=== PATIENT | female | born 1955 | race Caucasian/White ===

== ENCOUNTER → 2016-06-13 | Outpatient (CLI) | payer BC ==
[~2016-06-13] MED LIST: HYDR-5688 PO; IBUP-1428 PO
[2016-06-13 16:50] LABS: URINE APPEARANCE CLEAR (CLEAR); URINE BILIRUBIN NEG (NEG); URINE COLOR YELLOW; URINE EPITHELIAL CELL AUTO 20-30 /lpf (0-5); URINE NITRITE NEG (NEG); URINE PH 6.5 (4.5-7.5); UROBILINOGEN NEG (NEG)
[2016-06-13 17:02] LABS: MANUAL MICROSCOPIC REQUIRED? NO; REVIEW REQ? NO
== END | disposition home or self-care (01) ==
LOC: C.LAB 15:49
PROVIDERS: ATTEND Obstetrics & Gynecology
DX: R82.90 Unspecified abnormal findings in urine (principal)

== ENCOUNTER → 2016-06-29 | Outpatient (CLI) | payer BC | END | disposition home or self-care (01) | LOC: C.LAB 10:15 | PROVIDERS: ATTEND Obstetrics & Gynecology | DX: R82.90 Unspecified abnormal findings in urine (principal) ==

== ENCOUNTER → 2016-08-13 | Outpatient (CLI) | payer BC | END | disposition home or self-care (01) | LOC: C.PAPS 15:59 | PROVIDERS: ATTEND Obstetrics & Gynecology | DX: Z01.419 Encounter for gynecological examination (general) (routine) without abnormal findings (principal); Z87.42 Personal history of other diseases of the female genital tract; Z78.0 Asymptomatic menopausal state ==

== ENCOUNTER → 2016-08-13 | Outpatient (CLI) | payer BC | END | disposition home or self-care (01) | LOC: C.LABSPEC 13:49 | PROVIDERS: ATTEND Obstetrics & Gynecology | DX: N76.0 Acute vaginitis (principal); R82.90 Unspecified abnormal findings in urine ==

== ENCOUNTER 2016-08-30 22:43 | Emergency (ER) | payer BC ==
[~2016-08-30] VITALS: Ht 170.2 cm; Wt 65.6 kg
[2016-08-30 22:46] VITALS: TEMP 36.7; Ht 170.2 cm; Wt 65.6 kg
--- NOTE | 2016-08-30 22:59 | EMERGENCY ROOM VISIT NOTE ---
History Report prepared by [place]ibraven: Zack Hester Under the Supervision of: Dr. Mert De La Cruz D.O. First contact with patient: 22:49 Chief Complaint: FALL Stated Complaint: FELL,NOSE SCRAPED,RT FOOT,LF HAND History of Present Illness The patient is a 61 year old female who presents to the Emergency Room with complaints of an acute fall that occurred just prior to arrival. The patient missed the last step as she was going down a set of stairs. She scraped her nose on the ground, which was bleeding externally. She denies any bleeding from the internal nose. She also has right foot and left hand pain. She did not lose consciousness. She denies chest pain, back pain, abdominal pain, or hip pain. The patient cannot recall when she had her last tetanus booster. 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 A total of ten systems were reviewed and were otherwise negative. Past Medical & Surgical Medical Problems: (1) Vaginitis Family History No pertinent family history Social History Smoking Status: Never Smoker Marital Status: Housing Status: lives with family Current/Historical Medications No Active Prescriptions or Reported Meds Allergies Coded Allergies: No Known Allergies (Unverified , 08/30/16) Physical Exam Vital Signs Date Time Temp Pulse Resp B/P Pulse Ox O2 Delivery O2 Flow Rate FiO2 08/30/16 22:46 36.7 69 18 153/75 100 Room Air Physical Exam GENERAL: Awake, alert, well-appearing, in no distress HENT: Normocephalic. Oropharynx unremarkable. Abrasion / skin tear over the nasal bridge with mild tenderness. Ecchymosis to the chin, able to open jaw without any difficulty. EYES: Normal conjunctiva. Sclera non-icteric. NECK: Supple. No nuchal rigidity. FROM. No JVD. RESPIRATORY: Clear to auscultation. CARDIAC: Regular rate, normal rhythm. Extremities warm and well perfused. Pulses equal. ABDOMEN: Soft, non-distended. No tenderness to palpation. No rebound or guarding. No masses. RECTAL: Deferred. MUSCULOSKELETAL: Chest examination reveals no tenderness. The back is symmetrical on inspection without obvious abnormality. There is no CVA tenderness to palpation. Left wrist tenderness at the base of the ulnar region. Right foot with obvious ecchymosis swelling and tenderness at the base of the fifth metatarsal, neurovascularly intact distally. LOWER EXTREMITIES: Calves are equal size bilaterally and non-tender. No edema. No discoloration. NEURO: Normal sensorium. No sensory or motor deficits noted. SKIN: No rash or jaundice noted. Medical Decision & Procedures ER Provider Diagnostic Interpretation: X-ray: Per my interpretation,. LEFT WRIST: Negative for fracture. RIGHT ANKLE: Negative for fracture. RIGHT FOOT: Fracture at the base of the fifth metatarsal. Medications Administered Medications (Trade) Dose Ordered Sig/Shanthi Route Start Time Stop Time Status Last Admin Dose Admin Ibuprofen (Motrin Tab) 600 mg NOW STAT PO 08/30/16 23:00 08/30/16 23:06 DC 08/30/16 23:14 600 MG Procedure Dermabond applied to the superficial skin tear over the nasal bridge. ED Course 2250: The patient was evaluated in room C9. A complete history and physical exam was performed. 2300: Motrin 600 mg PO. 0002: Updated the patient. 0010: Dermabond applied to the superficial skin tear over the nasal bridge. Medical Decision Differential diagnosis includes sprain, strain, contusion, fracture. Impression Primary Impression: Fall Additional Impressions: Contusion of multiple sites Metatarsal bone fracture Wrist contusion Nasal abrasion Scribe Attestation The scribe's documentation has been prepared under my direction and personally reviewed by me in its entirety. I confirm that the note above accurately reflects all work, treatment, procedures, and medical decision making performed by me. Departure Information Dispostion Home / Self-Care Prescriptions Hydrocodone/Acetaminophen 5MG/325MG ([place] 5MG/325MG) Tab 1 TABLET PO Q6 Y for Pain for 2 Days, #10 TAB Prov: Mert De La Cruz, 08/31/16 Ibuprofen (Motrin) 800 Mg Tab 800 MG PO Q8H Y for Pain for 5 Days, #15 TAB Prov: Mert De La Cruz DO 08/31/16 Referrals Yaritza Mendoza DO (PCP) Zeyad Bauer M.D. Patient Instructions Contusion Bone, ED Fx Foot, ED Laceration Face Skin Glue , [facility] Health Problem Qualifiers Primary Impression: Fall Encounter type: initial encounter Qualified Codes: W19.XXXA - Unspecified fall, initial encounter Additional Impressions: Metatarsal bone fracture Encounter type: initial encounter Metatarsal bone: first Fracture type: closed Fracture alignment: nondisplaced Laterality: right Qualified Codes: S92.314A - Nondisplaced fracture of first metatarsal bone, right foot, initial encounter for closed fracture Wrist contusion Encounter type: initial encounter Laterality: left Qualified Codes: S60.212A - Contusion of left wrist, initial encounter
[2016-08-30] MEDS ORDERED: IBUPROFEN 600 MG TAB PO STA (23:00)
[2016-08-31] MEDS ORDERED: IBUP-1428 PO (00:33)
[2016-08-31] MEDS ORDERED: HYDR-5688 PO (00:33)
[2016-08-31 00:50] VITALS: BP 121/70; PULSE 75; O2SAT 99
--- NOTE | 2016-08-31 08:05 | DIAGNOSTIC IMAGING REPORT ---
RIGHT FOOT 3 VIEWS HISTORY: Right foot pain. COMPARISON: None. FINDINGS: Nondisplaced slightly comminuted fracture at the base of the fifth metatarsal. This extends to the tarsometatarsal and intertarsal locations. Soft tissue swelling at the lateral mid foot. No radiopaque foreign bodies. IMPRESSION: Slightly comminuted nondisplaced fracture at the base of the fifth metatarsal consistent with a Small fracture. Electronically signed by: Casey Pérez M.D. 08/31/2016 8:04 AM Dictated Date/Time: 08/31/2016 8:00 AM
--- NOTE | 2016-08-31 08:14 | DIAGNOSTIC IMAGING REPORT ---
LEFT WRIST 4 VIEWS HISTORY: Left wrist pain COMPARISON: None. FINDINGS: Suspect a small nondisplaced fracture at the triquetral bone. This may demonstrate corticated edges and is therefore considered age-indeterminate. Mild dorsal soft tissue swelling. No radiopaque foreign bodies. IMPRESSION: Age-indeterminate small nondisplaced fracture at the triquetral bone. Follow-up radiograph in 2 weeks can be performed to assess for an acute injury. Electronically signed by: Casey Pérez M.D. 08/31/2016 8:12 AM Dictated Date/Time: 08/31/2016 8:10 AM
--- NOTE | 2016-08-31 08:15 | DIAGNOSTIC IMAGING REPORT ---
RIGHT ANKLE 3 VIEWS HISTORY: And ankle pain. COMPARISON: None. FINDINGS: There is no fracture or dislocation. Diffuse soft tissue swelling. No radiopaque foreign bodies. Nondisplaced fifth metatarsal fracture. IMPRESSION: No acute fracture or dislocation within the right ankle. Nondisplaced fifth metatarsal fracture. Electronically signed by: Casey Pérez M.D. 08/31/2016 8:13 AM Dictated Date/Time: 08/31/2016 8:12 AM
--- NOTE | 2016-09-03 07:35 | EDITING REQUIRED CODING QUERY ---
LENGTH OF LACERATION To promote full compliance with coding requirements relating to patient care, physician participation is requested in all cases of factory maintenance manager uncertainty. Please assist us with the question(s) below: Please document the length of the nasal laceration. Please type the length in cm within the parenthesis () below. Nasal laceration is ( ) cm. Thank you Mira Diane
== END 2016-08-31 00:51 | disposition home or self-care (01) ==
LOC: C.EDB 22:44 → C.EDC 08-31 00:51
DX: S00.31XA Abrasion of nose, initial encounter (principal); S92.314A Nondisplaced fracture of first metatarsal bone, right foot, initial encounter for closed fracture; S60.212A Contusion of left wrist, initial encounter; W10.9XXA Fall (on) (from) unspecified stairs and steps, initial encounter

== ENCOUNTER → 2017-09-09 | Outpatient (CLI) | payer OTHER ==
--- NOTE | 2017-09-10 15:12 | MAMMOGRAPHY REPORT ---
BILATERAL DIGITAL SCREENING MAMMOGRAM TOMOSYNTHESIS WITH CAD: 09/09/2017 CLINICAL HISTORY: Routine screening. TECHNIQUE: Breast tomosynthesis in addition to standard 2D mammography was performed. Current study was also evaluated with a Computer Aided Detection (CAD) system. COMPARISON: Comparison is made to exams dated: 02/02/2016 mammogram, 05/21/2014 mammogram, 06/11/2012 ma mmogram, 10/31/2010 mammogram - [facility], 07/29/2008, and 10/24/2006. BREAST COMPOSITION: The tissue of both breasts is heterogeneously dense, which may obscure small mas ses. FINDINGS: There is possible focal architectural distortion in the upper outer middle to posterior le ft breast, for which additional spot compression tomosynthesis views and possible ultrasound are pascale mmended. No other suspicious mass, architectural distortion or cluster of microcalcifications is seen. IMPRESSION: ACR BI-RADS CATEGORY 0: INCOMPLETE EVALUATION: NEED ADDITIONAL IMAGING EVALUATION The possible focal area of architectural distortion in the upper outer left breast needs additional e valuation. The patient will be called to schedule an appointment. Approximately 10% of breast cancers are not detected with mammography. A negative mammographic report should not delay biopsy if a clinically suggestive mass is present. Minda Castro M.D. ay/:09/09/2017 14:56:41 Telephone Installer: Yennifer ECHEVERRIA(Dale)(M), [facility] letter sent: [facility] 0 BI-RADS Code: ACR BI-RADS Category 0: Incomplete Evaluation: Need Additional Imaging Evaluation
== END | disposition home or self-care (01) ==
LOC: C.MAMM 12:21
PROVIDERS: ATTEND Obstetrics & Gynecology
DX: Z12.31 Encounter for screening mammogram for malignant neoplasm of breast (principal); R92.2 Inconclusive mammogram

== ENCOUNTER → 2017-09-23 | Outpatient (CLI) | payer OTHER ==
--- NOTE | 2017-09-24 13:16 | MAMMOGRAPHY REPORT ---
UNILATERAL LEFT DIGITAL DIAGNOSTIC MAMMOGRAM TOMOSYNTHESIS AND TARGETED LEFT ULTRASOUND: 09/23/2017 CLINICAL HISTORY: 62-year-old woman called back from screening mammography for a possible focal area of architectural distortion in the upper outer middle to posterior left breast. No family history of breast cancer. TECHNIQUE: Spot compression left CC and MLO tomosynthesis images were obtained. COMPARISON: Comparison is made to exams dated: 09/09/2017 mammogram, 02/02/2016 mammogram, 05/21/2014 ma mmogram, 06/11/2012 mammogram, 10/31/2010 mammogram - [facility], and 07/29/2008. BREAST COMPOSITION: The tissue of the left breast is heterogeneously dense, which may obscure small masses. FINDINGS: The supplemental spot compression tomosynthesis views of the left breast demonstrate a pers istent subtle questionable area of architectural distortion in the lateral, middle one third of the b reast on CC tomosynthesis slice 20/74. No definite corresponding abnormality is seen on the spot com pression MLO view. There are a few microcalcifications in the lateral left breast that appears stabl e dating back to at least 2012. Targeted ultrasound was performed throughout the lateral left breast including the 12:00 and 6:00 axe s. There are ill-defined hypoechoic areas of shadowing in the 12:00 axis, lowering the sensitivity o f ultrasound. No definite focal area of architectural distortion is appreciated in real-time ultraso und scanning. IMPRESSION: ACR BI-RADS CATEGORY 1: NEGATIVE, TARGETED ULTRASOUND ACR BI-RADS CATEGORY 0: INCOMPLETE EVALUATION: NEED ADDITIONAL IMAGING EVALUATION There is a possible subtle persistent area of architectural distortion in the lateral right breast on ly seen on the spot compression CC tomosynthesis images, without corresponding abnormality identified on the spot compression MLO tomosynthesis images, and no definite sonographic correlate identified. This area remains indeterminate and further characterization with a bilateral breast MRI is recommen ded to exclude the possibility of a subtle infiltrative process or enhancing mass. These results and recommendations were discussed with the patient at the time of the exam. Approximately 10% of breast cancers are not detected with mammography. A negative mammographic report should not delay biopsy if a clinically suggestive mass is present. Minda Castro M.D. ay/:09/23/2017 15:04:48 Balloon Tester: Yennifer ECHEVERRIA(R)(M), [facility] letter sent: [facility] 0 BI-RADS Code: ACR BI-RADS Category 1: Negative Ultrasound BI-RADS: ACR BI-RADS Category 0: Incomplet e Evaluation: Need Additional Imaging Evaluation
== END | disposition home or self-care (01) ==
LOC: C.MAMM 14:06
PROVIDERS: ATTEND Obstetrics & Gynecology
DX: R92.8 Other abnormal and inconclusive findings on diagnostic imaging of breast (principal)